=== PATIENT | female | born 1980 | race Caucasian/White ===

== ENCOUNTER 2024-01-31 13:49 | Emergency (ER) | payer BC, SELFPAY ==
[2024-01-31 13:59] VITALS: BP 118/83; BMI 29.2
[2024-01-31 14:22] LABS: % Basophils 0.6 % (0-2); % Eosinophils 2.3 % (0-6); % Immature Granulocytes 0.1 % (0-0.5); % Lymphocytes 36.5 % (20.5-51.1); % Monocytes 8.9 % (1.7-9.3); % Neutrophils 51.6 % (42.2-75.2); Absolute Eosinophils 0.2 10^3/uL (0-0.7); Absolute Lymphocytes 2.5 10^3/uL (1.2-3.4); Absolute Monocytes 0.6 10^3/uL (0.1-0.6); Absolute Neutrophils 3.5 10^3/uL (1.4-6.5); Hematocrit 37.1 % (37.0-47.0); Hemoglobin 12.8 g/dL (12.0-16.0); Mean Corp Hgb Conc. 34.5 g/dL (33.0-37.0); Mean Corpuscular Hgb 31.9 pg (27.0-31.0); Mean Corpuscular Volume 92.5 fL (81.0-99.0); Mean Platelet Volume 10.1 fL (7.4-10.4); Nucleated Red Blood Cells % 0 %; Platelet Count 241 10^3/uL (130-400); Red Blood Cell Count 4.01 10^6/uL (4.20-5.40); Red Cell Dist. Width 12.2 % (11.5-14.5); White Blood Cell Count 6.8 10^3/uL (4.8-10.8)
[2024-01-31 14:37] LABS: HCG, Serum Qualitative Screen Negative
[2024-01-31 14:46] LABS: ALT (SGPT) 17 U/L (0-35); AST (SGOT) 21 U/L (14-36); Albumin 4.4 g/dl (3.5-5.0); Alkaline Phosphatase 52 U/L (38-126); Blood Urea Nitrogen 20 mg/dl (7-17); Calcium 9.8 mg/dl (8.4-10.2); Carbon Dioxide 24 mmol/L (22-30); Chloride 107 mmol/L (98-107); Estimated Creatinine Clearance 87 ml/min; Glucose 101 mg/dl (70-99); Potassium 4.2 mmol/L (3.5-5.1); Sodium 136 mmol/L (135-145); Total Bilirubin 0.4 mg/dl (0.2-1.3); Total Protein 6.8 g/dl (6.3-8.2); eGFR > 60.00
[2024-01-31 14:50] LABS: Troponin I < 0.012 ng/ml
--- NOTE | 2024-01-31 15:31 | ED.GENMED ---
History of Present Illness
General
Chief Complaint: Chest Pain
Time Seen by Provider: 01/31/24 15:31
History of Present Illness
History of Present Illness:
HPI: The patient presents with chest pain over the past month over the last several days she has developed more of a tightness feeling. It does not necessarily work with him with exertions. She also reports right eyelid blepharospasm as well as a
pins and needle sensation in the upper extremities left greater than right. She does not have any shortness of breath. The patient has high blood pressure, hypercholesterolemia, and states that her mother had coronary bypass in her 60s.
EXAM:
GENERAL: Well appearing in no distress
HEENT: Moist oral mucosa
CARDIOVASCULAR: No murmurs, normal heart rate, regular rhythm, No chest wall tenderness
PULMONARY: No respiratory distress, breath sounds are clear and equal
ABDOMEN: Soft with no peritoneal signs, no tenderness
NEUROLOGIC: Excellent strength all extremities, no coordination deficits
PSYCHIATRIC: Appropriate mental status, normal insight and judgement
EXTREMITIES: Nontender, no edema, moves all extremities equally
SKIN: No rash, no lesions
TIME OF INITIAL ENCOUNTER: 3:30 PM
NUMBER AND COMPLEXITY OF PROBLEMS ADDRESSED AT THE ENCOUNTER
� Chronic conditions affecting care: High blood pressure, hyperlipidemia
� Acute Exacerbation and/or Progression of Chronic Illness: This is an acute problem
� Differential Diagnosis includes: Anxiety, ACS, pneumonia, bronchitis
AMOUNT AND/OR COMPLEXITY OF DATA TO BE REVIEWED AND ANALYZED
� I performed an independent evaluation of and my interpretation is:
EKG: Sinus 77, leftward axis, no acute ST abnormality
CT:
X-rays: Chest x-ray negative
Laboratory Studies: CBC, chemistries, hCG all negative troponin less than 0.012
Other:
� Review of other/old records: No old records available for review in [facility]
� Clinical information was obtained by an independent historian: I spoke to at bedside
� Prescriptions/Medications Considered but not given: Consider analgesia over the patient to
� Further testing considered but not performed:
RISK OF COMPLICATIONS AND/OR MORBIDITY OR MORTALITY OF PATIENT MANAGEMENT
� Social determinants of health affecting care: Lives at home
� Discussion with other providers:
� Escalation of care including admission/observation vs risk of discharge considered: The patient is had several days of symptoms which are not exertional Shaji chest pressure and she does have some risk factors. She also
reports paresthesias and blepharospasm and I therefore suspect more of a stress/anxiety component. However we have not definitively ruled out a coronary etiology therefore I also recommend that she follows up with cardiology as an outpatient. She
is PERC negative. Chest x-ray unremarkable and on reassessment at 5:40 PM, the patient appears very comfortable. Recommend cardiology follow-up.
Phy Exam
Physical Exam
Physical Exam:
See HPI
Scores
Heart Score for Chest Pain Patients
STEMI patient?: Not applicable
PERC Rule Criteria
Age <50 years: Yes
HR <100 bpm: Yes
Room air oxygen sat >94%: Yes
History of DVT or PE: No
Recent trauma or surgery: No
Hemoptysis: No
Exogenous estrogen: No
Clinical signs suggestive of DVT: No
: No
Considered low risk for PE: Yes
PERC Score: 0
PE can be excluded by PERC: Yes
Course
Orders/Labs/Results
Orders:
Orders
01/31/24 13:58
Electrocardiogram (*1) Urgent
Reason for Study: Chest Pain
EKG- Treatment ONCE
Test Result ONCE
01/31/24 14:13
Complete Blood Count/With Diff Urgent
Comprehensive Metabolic Panel Urgent
HCG, Serum Qualitative Screen Urgent
Comment: Notify provider if positive test present
Troponin I Urgent
01/31/24 15:43
CR Chest - 2 Views Urgent
Comment:
Reason For Exam: L CP
Abnormal Lab Results
01/31/24
14:13
RBC 4.01 L 10^6/uL
(4.20-5.40)
MCH 31.9 H pg
(27.0-31.0)
BUN 20 H mg/dl
(7-17)
Glucose 101 H mg/dl
(70-99)
01/31/24 14:13
01/31/24 14:13
Vital Signs
Initial and Last Documented VS:
Initial Vital Signs
Temp Pulse Resp BP Pulse Ox
98.4 F 68 18 118/83 99
01/31/24 13:59 01/31/24 13:59 01/31/24 13:59 01/31/24 13:59 01/31/24 13:59
Last Documented Vital Signs
Temp Pulse Resp BP Pulse Ox
98.4 F 67 7 134/83 99
01/31/24 13:59 01/31/24 15:49 01/31/24 15:49 01/31/24 15:48 01/31/24 15:49
*Critical Care Note
Total Time (30-74mins, 75-104mins- exclusive of procedures): Not Applicable
ED Attending Note
-
Portions of this chart may have been created with voice recognition software.� Occasional wrong word or��sound alike� substitutions may have occurred due to the inherent limitations of voice recognition software.
Discharge Plan
Departure
Patient Disposition: Home (Routine Discharge)
Date of Disposition: 01/31/24
Time of Disposition: 17:42
Patient with high blood pressure during this ER visit?: Yes
Discharge Problem:
Chest pain
Instructions: Chest Pain CBC Follow Up
Referrals:
Kai Preciado PA-C [Family Provider] -
Dangelo Engel MD [Active] - Follow up in 2-3 days
Activity Restrictions/Additional Instructions:
Cardiac blood work and EKG are normal. However given your cardiac risk factors, I do recommend that you follow-up with a board design engineer such as Dr. Engel. Somebody from [facility] cardiology should be calling you for follow-up. Return here if
worse or other concerns.
Interventions
Interventions:
*Risk Screen - Suicide Last Done: 01/31/24 13:59
*General Assessment Last Done: 01/31/24 15:45
*Neglect/Abuse Screening Last Done: 01/31/24 13:59
ED- Fall Risk Assessment Last Done: 01/31/24 13:59
*ED COVID-19 Vaccine History Last Done: 01/31/24 15:45
ED- Cardiac Assessment Last Done: 01/31/24 15:45
Discharge Date and Time
Print Language: FRENCH
[2024-01-31 15:48] VITALS: BP 134/83
== END 2024-01-31 18:08 | disposition home or self-care (01) ==
LOC: EMR 13:49
PROVIDERS: Emergency Medicine; EMERGENCY PHYSICIAN Emergency Medicine; FAMILY PHYSICIAN Physician Assistant Medical
DX: R07.89 Other chest pain (principal); I10 Essential (primary) hypertension; E78.00 Pure hypercholesterolemia, unspecified
CPT/HCPCS: 99285; 71046; 80053; 84484; 84703; 85025; 93005

== ENCOUNTER 2025-03-20 23:04 | Emergency (ER) | payer BC, SELFPAY ==
[2025-03-20 23:14] VITALS: BP 114/74
[2025-03-20 23:49] LABS: Hematocrit 34.1 % (37.0-47.0); Hemoglobin 11.6 g/dL (12.0-16.0); Mean Corp Hgb Conc. 34.0 g/dL (33.0-37.0); Mean Corpuscular Volume 91.2 fL (81.0-99.0); Nucleated Red Blood Cells % 0 %; Platelet Count 225 10^3/uL (130-400); Red Cell Dist. Width 12.2 % (11.5-14.5)
[2025-03-21 00:01] LABS: ALT (SGPT) 19 U/L (0-35); AST (SGOT) 19 U/L (14-36); Albumin 4.4 g/dl (3.5-5.0); Alkaline Phosphatase 43 U/L (38-126); Blood Urea Nitrogen 24 mg/dl (7-17); Calcium 10.1 mg/dl (8.4-10.2); Carbon Dioxide 23 mmol/L (22-30); Chloride 105 mmol/L (98-107); Glucose 138 mg/dl (70-99); Potassium 4.1 mmol/L (3.5-5.1); Sodium 136 mmol/L (135-145); Total Protein 6.9 g/dl (6.3-8.2); eGFR > 60.00
--- NOTE | 2025-03-21 00:32 | ED.GENMED ---
History of Present Illness
<Brice Carvalho PA-C - Last Filed: 03/21/25 00:40>
General
Chief Complaint: Urinary Symptoms
Time Seen by Provider: 03/20/25 23:52
History of Present Illness
History of Present Illness:
44-year-old female with history of hypertension and hyperlipidemia presents to the emergency department for evaluation of left flank pain and difficulty urinating for the past 5 days. She was seen in urgent care for the symptoms last week and
reportedly had hematuria, was started on antibiotics and urine was sent for C&S, this resulted as negative. This is information provided by the patient as I do not immediately have records available to me. Her symptoms will continue to worsen and
she feels as though she cannot empty her bladder at any point today. No fevers or chills. No prior history of kidney stone.
Review of Systems
<Brice Carvalho PA-C - Last Filed: 03/21/25 00:40>
Review of Systems
Allergies reviewed?: Yes
All Other Systems: ROS reviewed and negative except as documented in HPI and ROS
Phy Exam
<SHAWNEE Newamn Last Filed: 03/21/25 00:40>
Physical Exam
Physical Exam:
GEN: Well appearing, NAD, WDWN
HEENT: Oral mucosa moist, no scleral icterus
Cardiac: Regular rate
Lung: No respiratory distress, no tachypnea
MSK: No gross deformity or injuries
Skin: Good color, no pallor or jaundice, no rashes
Neuro: AO x3, moves all extremities freely
Psych: Calm, cooperative
Sepsis
<SHAWNEE Newman Last Filed: 03/21/25 00:40>
Sepsis Screen
Sepsis Screen: Possible Sepsis
Date: 03/21/25
Time: 00:32
<SHAWNEE Stein Last Filed: 03/21/25 03:28>
Sepsis Screening
Sepsis Assessment: Sepsis Ruled Out
Sepsis Screen
Sepsis Screen: Sepsis Ruled Out
Date: 03/21/25
Time: 03:27
Course
<Brice Carvalho PA-C - Last Filed: 03/21/25 00:40>
Orders/Labs/Results
Orders:
Orders
03/20/25 23:17
Urinalysis Urgent
Date Specimen was Collected: 03/20/25
Time Specimen was Collected: 23:18
03/20/25 23:36
Complete Blood Count/With Diff Urgent
Comprehensive Metabolic Panel Urgent
HCG, Serum Qualitative Screen Urgent
Comment: ADDED
03/21/25 00:22
CT Abd/pel Without Iv Or Oral Urgent
Comment:
Reason For Exam: flank pain
03/21/25 00:38
Add On- LAB Urgent
Tests Added?: HCG qual
03/21/25 00:39
Ketorolac [Toradol] 15 mg IV NOW STA
03/21/25 00:49
Urine Microscopic Urgent
Date Specimen was Collected: 03/20/25
Time Specimen was Collected: 23:18
03/21/25 03:19
Oxycodone/Acetaminophen [Percocet 5/325] 1 tablet PO NOW STA
Abnormal Lab Results
03/20/25 03/21/25
23:36 00:49
RBC 3.74 L 10^6/uL
(4.20-5.40)
Hgb 11.6 L g/dL
(12.0-16.0)
Hct 34.1 L %
(37.0-47.0)
Absolute Monos (auto) 0.8 H 10^3/uL
(0.1-0.6)
BUN 24 H mg/dl
(7-17)
Glucose 138 H mg/dl
(70-99)
Urine Occult Blood 4+ A
(Negative)
Ur Leukocyte Esterase 1+ A
(Negative)
Urine RBC 80-90 A /HPF
(0-2)
Urine Albumin 3+ A
(Neg - Trace)
03/20/25 23:36
03/20/25 23:36
Vital Signs
Initial and Last Documented VS:
Initial Vital Signs
Temp Pulse Resp BP Pulse Ox
97.7 F 80 26 114/74 100
03/20/25 23:14 03/20/25 23:14 03/20/25 23:14 03/20/25 23:14 03/20/25 23:14
Last Documented Vital Signs
Temp Pulse Resp BP Pulse Ox
97.7 F 80 26 114/74 100
03/20/25 23:14 03/20/25 23:14 03/20/25 23:14 03/20/25 23:14 03/21/25 00:34
<Martine Phillips PA-C - Last Filed: 03/21/25 03:28>
Orders/Labs/Results
Orders:
Orders
03/20/25 23:17
Urinalysis Urgent
Date Specimen was Collected: 03/20/25
Time Specimen was Collected: 23:18
03/20/25 23:36
Complete Blood Count/With Diff Urgent
Comprehensive Metabolic Panel Urgent
HCG, Serum Qualitative Screen Urgent
Comment: ADDED
03/21/25 00:22
CT Abd/pel Without Iv Or Oral Urgent
Comment:
Reason For Exam: flank pain
03/21/25 00:38
Add On- LAB Urgent
Tests Added?: HCG qual
03/21/25 00:39
Ketorolac [Toradol] 15 mg IV NOW STA
03/21/25 00:49
Urine Microscopic Urgent
Date Specimen was Collected: 03/20/25
Time Specimen was Collected: 23:18
03/21/25 03:19
Oxycodone/Acetaminophen [Percocet 5/325] 1 tablet PO NOW STA
Abnormal Lab Results
03/20/25 03/21/25
23:36 00:49
RBC 3.74 L 10^6/uL
(4.20-5.40)
Hgb 11.6 L g/dL
(12.0-16.0)
Hct 34.1 L %
(37.0-47.0)
Absolute Monos (auto) 0.8 H 10^3/uL
(0.1-0.6)
BUN 24 H mg/dl
(7-17)
Glucose 138 H mg/dl
(70-99)
Urine Occult Blood 4+ A
(Negative)
Ur Leukocyte Esterase 1+ A
(Negative)
Urine RBC 80-90 A /HPF
(0-2)
Urine Albumin 3+ A
(Neg - Trace)
03/20/25 23:36
03/20/25 23:36
Vital Signs
Initial and Last Documented VS:
Initial Vital Signs
Temp Pulse Resp BP Pulse Ox
97.7 F 80 26 114/74 100
03/20/25 23:14 03/20/25 23:14 03/20/25 23:14 03/20/25 23:14 03/20/25 23:14
Last Documented Vital Signs
Temp Pulse Resp BP Pulse Ox
97.7 F 80 26 114/74 100
03/20/25 23:14 03/20/25 23:14 03/20/25 23:14 03/20/25 23:14 03/21/25 00:34
<Brice Carvalho PA-C - Last Filed: 03/21/25 00:40>
*Pulse Oximetry
SaO2: 100
Oxygen Mode of Delivery: Room air
<Martine Phillips PA-C - Last Filed: 03/21/25 03:28>
*Pulse Oximetry
Patient hypoxic: no
*Critical Care Note
Total Time (30-74mins, 75-104mins- exclusive of procedures): Not Applicable
<Martine Phillips PA-C - Last Filed: 03/21/25 03:28>
Update Note
Update Note:
Update
I received patient in signout. On my evaluation, patient is well-appearing no acute distress. She does complain of some mild discomfort in her right flank area. Significantly improved from prior with Toradol. Patient had increased urinary
frequency and is concerned about UTI however patient was recently seen at urgent care and had a culture which was negative which I personally reviewed. Patient was taken off of antibiotics. Her urinalysis showed almost go 1+ leuk esterase but no
nitrites, no WBCs. Reviewed case with the ED attending. Patient will trial outpatient stone passage. Patient does have a strong family history of kidney stones I did recommend follow-up with urology. Discussed tricked return precautions.
Patient stable for discharge.
ED Attending Note
<Brice Carvalho PA-C - Last Filed: 03/21/25 00:40>
-
Portions of this chart may have been created with voice recognition software.� Occasional wrong word or��sound alike� substitutions may have occurred due to the inherent limitations of voice recognition software.
Discharge Plan
Departure
Patient with high blood pressure during this ER visit?: No
Condition: Good
Discharge Problem:
Calculus of ureterovesical junction (UVJ)
Instructions: Kidney stones in adults, BLOOD PRESSURE
Prescriptions:
New
oxycodone-acetaminophen [Percocet] 5-325 mg tablet
1 tab PO Q6HPRN PRN (Reason: pain) Qty: 8 0RF
tamsulosin [Flomax] 0.4 mg capsule
0.4 mg PO DAILY Qty: 10 0RF
Referrals:
Cristopher Rodriguez MD [Active, Urology] - Call in 1-3 days for appt
Kai Preciado PA-C [Family Provider, Family Practice]
Stand Alone Forms: Return to Work
Activity Restrictions/Additional Instructions:
For the Flomax, please take 1 tablet once daily until stone passage. Please take 600 mg of ibuprofen every 6 hours as needed. Please not exceed 3200 mg/day of ibuprofen. For breakthrough pain, you can take 1 Percocet tablet. You can take 1
tablet every 6 hours as needed.
Considering your family history, would recommend follow-up with urology. Please call the attached number to schedule appointment. PLEASE RETURN TO THE ER SHOULD YOU DEVELOP WORSENING ABDOMINAL PAIN, FLANK PAIN, FEVERS OR CHILLS, BURNING WITH
URINATION, CHEST PAIN OR SHORTNESS OF BREATH, OR ANY OTHER SIGNS OR SYMPTOMS WORRISOME TO YOU.
Interventions
Interventions:
*Risk Screen - Suicide Last Done: 03/20/25 23:14
*General Assessment Last Done: 03/21/25 00:28
*Neglect/Abuse Screening Last Done: 03/20/25 23:14
*ED- Fall Risk Assessment Last Done: 03/21/25 00:28
*ED COVID-19 Vaccine History Last Done: 03/21/25 00:28
ED-Female Genitourinary Assessment Last Done: 03/21/25 00:29
Discharge Date and Time
Print Language: DUTCH
[2025-03-21] MEDS: TORADOL 15 MG IV (00:42)
[2025-03-21 01:08] LABS: HCG, Serum Qualitative Screen Negative
[2025-03-21 01:10] LABS: Urine Character Clear (Clear)
[2025-03-21 02:03] LABS: Urine Squamous Cell 21-25 /LPF (Few)
[2025-03-21 02:04] LABS: Urine Red Blood Cell 80-90 /HPF (0-2)
[2025-03-21 02:05] LABS: Urine White Cell None Seen /HPF (0-5)
[2025-03-21] MEDS: PERCOCET 5/325 1 TABLET PO (03:25)
[2025-03-21 03:46] VITALS: BP 118/49
== END 2025-03-21 03:49 | disposition home or self-care (01) ==
LOC: EMR 23:04
PROVIDERS: EMERGENCY PHYSICIAN Emergency Medicine; FAMILY PHYSICIAN Physician Assistant Medical
DX: N20.1 Calculus of ureter (principal); E78.00 Pure hypercholesterolemia, unspecified; I10 Essential (primary) hypertension
CPT/HCPCS: 99284; 96374; 74176; 80053; 81003; 81015; 84703; 85025

== ENCOUNTER 2025-04-19 06:43 | Day surgery (SDC) | payer BC, SELFPAY ==
[2025-04-19] VITALS (7 sets, daily range): BP systolic 128–141; BP diastolic 81–100; BMI 31.5
[2025-04-19] MEDS: NORMOSOL-R/PLASMALYTE-A 1000 IV (16:36)
[2025-04-19] MEDS: DETROL LA 4 MG PO (19:24)
== END 2025-04-19 19:48 | disposition home or self-care (01) ==
LOC: SDS 06:43
PROVIDERS: ATTENDING PHYSICIAN Specialist
DX: N20.0 Calculus of kidney (principal); N28.89 Other specified disorders of kidney and ureter
CPT/HCPCS: 52356; 74018; 76000; C1894; C2617